=== PATIENT | male | born 1990 | race Caucasian/White ===

== ENCOUNTER 2018-04-26 00:40 | Inpatient (IN) | payer BC ==
[~2018-04-26] VITALS: Ht 170.2 cm; Wt 69.9 kg
[2018-04-26] MEDS ORDERED: ALBUTEROL SULFATE 2.5 MG/3 ML NEBU NEB ONE (01:00)
[2018-04-26] MEDS ORDERED: ALBUTEROL SULFATE 2.5 MG/3 ML NEBU ONE (01:04)
[2018-04-26] MEDS ORDERED: EPINEPHRINE 1 MG/1 ML AMP SQ ONE (01:30)
[2018-04-26] MEDS ORDERED: FAMOTIDINE. 20 MG/2 ML VIAL IV ONE ×2 (01:30→01:33)
[2018-04-26] MEDS ORDERED: diphenhydrAMINE 50 MG/1 ML VIAL IV ONE (01:30)
[2018-04-26] MEDS ORDERED: methylPREDNISolone SOD SUCC 125 MG/2 ML VIAL IV ONE (01:30)
--- NOTE | 2018-04-26 01:30 | NUR ---
Pt was brought in by mother for complaints of allergic reaction from almonds. Gen redness, itching noted. C/O "unable to take air", chest and throat tightness 2 hrs after eating almonds. Pt able to speak clearly. Alert, oriented x3. No sob noted. No s/sx of distress noted. Resp even and unlabored. Will cont to monitor.
[2018-04-26] MEDS ORDERED: EPINEPHRINE 1 MG/1 ML AMP ONE (01:32)
[2018-04-26] MEDS ORDERED: methylPREDNISolone SOD SUCC 125 MG/2 ML VIAL ONE (01:33)
--- NOTE | 2018-04-26 01:45 | NUR ---
After IV to L hand started, patient complaining of pain to L hand where IV was at. While nurse was trying to remove the IV, patient became pale, tensed up with back arched and gen shaking, which lasted about 5 minutes. Airway secured and safety precautions made during this episode. MD made aware and was at the bedside to assess patient. Reassured and comforted patient and mother. Will cont to monitor.
--- NOTE | 2018-04-26 02:12 | NUR ---
Benadryl unavailable at this time. House sup made aware. Waiting for HS to bring Benadryl
[2018-04-26] MEDS ORDERED: diphenhydrAMINE 50 MG/1 ML VIAL ONE (02:13)
--- NOTE | 2018-04-26 02:28 | NUR ---
Pt sleeping at this time. No sob noted. No ss/x of distress noted. Resp even and unlabored. Mother at bedside. Will cont to monitor.
[2018-04-26 02:41] LABS: BASOPHILS % (AUTO) 0.3 % (0.0-2.0); EOSINOPHILS # (AUTO) 0.1 K/uL (0.0-0.7); EOSINOPHILS % (AUTO) 1.2 % (0.0-7.0); HEMATOCRIT 43.3 % (36.7-47.1); HEMOGLOBIN 14.9 g/dL (12.5-16.3); LYMPHOCYTES # (AUTO) 3.1 K/uL (20.0-40.0); MEAN CORPUSCULAR HEMOGLOBIN 30.9 uug (23.8-33.4); MEAN CORPUSCULAR HGB CONC 35 g/dL (32.5-36.3); MEAN CORPUSCULAR VOLUME 89.6 fL (73.0-96.2); MONOCYTES # (AUTO) 0.6 K/uL (2.0-10.0); MONOCYTES % (AUTO) 7.1 % (0.0-11.0); NEUTROPHILS # (AUTO) 4.2 K/uL (1.8-8.9); NEUTROPHILS % (AUTO) 52.4 % (38.5-71.5); PLATELET COUNT (AUTO) 205 K/uL (152-348); RED BLOOD CELL COUNT(AUTO) 4.84 MIL/uL (4.06-5.63)
--- NOTE | 2018-04-26 02:42 | NUR ---
Amend: Episode last for about 5 seconds. S/P episode, patient was pale, diaphoretic and clammy.
[2018-04-26 02:49] LABS: CREATININE 0.8 mg/dL (0.6-1.3); POTASSIUM 3.5 mmol/L (3.5-5.1)
--- NOTE | 2018-04-26 02:51 | NUR ---
Attempted to call report. Receiving nurse will call back.
[2018-04-26 02:55] LABS: BILIRUBIN,DIRECT 0.1 mg/dL (0.0-0.2); BILIRUBIN,TOTAL 0.3 mg/dL (0.2-1.0)
--- NOTE | 2018-04-26 02:58 | NUR ---
Pt. admitted to tele , under care of Dr. Diana Belongs List completed
--- NOTE | 2018-04-26 03:21 | NUR ---
Pt called stated that his IV is hurting too much. Attempted to reposition arm, effective initially. Pt eventually wanted to have IV site changed. Discontinued [id number] with inner cannula intact. Light pressure with gauze and tape applied. Pt letty well. No complications. Restarted IV 20g to RFA; blood return noted and flushed well. Pt complained of severe pain to RFA IV site. Discontinued 20g RFA with inner cannula intact. Light pressure with gauze and tape applied. Pt letty well. No complications. Restarted IV with smaller gauge. Effective. Will cont to monitor.
--- NOTE | 2018-04-26 03:45 | NUR ---
PATIENT BROUGHT IN VIA GOURNEY ACCOMPANIED BY MOTHER, ADMITTED TO TELEMETRYWITH DX. ALLERGIC REACTION. NO S/S PRESENT NOW. NO C/O OF PAIN OR ANY DISCOMFORT. V/S WNL. SINUS RHYTHM ON THE SHAKER TENDER WILL CONTINUE TO MONITOR
--- NOTE | 2018-04-26 04:00 | NUR ---
SEIZURE PRECAUTIONS OBSERVED
[2018-04-26 04:52] VITALS: BP 121/59
[2018-04-26] MEDS ORDERED: diphenhydrAMINE 50 MG/1 ML VIAL IV PRN ×2 (05:00→07:30)
[2018-04-26] MEDS ORDERED: ACETAMINOPHEN 325 MG TABLET PO PRN (06:30)
[2018-04-26] MEDS ORDERED: IV 1/2NS 1000 ML 1,000 ML IV PRN (06:30)
[2018-04-26] MEDS ORDERED: ONDANSETRON 4 MG/2 ML VIAL IV PRN (06:30)
--- NOTE | 2018-04-26 06:55 | NUR ---
PATIENT ON BED, SLEEPING , EASILY AROUSING TO VERBAL COMMANDS. NO C/O OF PAIN OR ANY DISCOMFORT. IV FLUID STARTED ORDERED. NO EPISODES OF SEIZURE NOTED. SEIZURE PRECATIONS OBSERVED. MOTHER AT THE BED SIDE.
[2018-04-26] MEDS ORDERED: FAMOTIDINE. 20 MG/2 ML VIAL IV SCH (09:00)
[2018-04-26 11:24] VITALS: BP 116/52
--- NOTE | 2018-04-26 13:38 | NUR ---
D/C ORDERS RECEIVED NOTED AND CARRIED OUT,D/C INSTRUCTION AND EDUCATION GIVEN TO THE PT,D/C YOVANA PER MD ORDERS.PT LEFT THE FACILITY VIA PRIVATE CAR IN STABLE CONDITION
== END 2018-04-26 13:35 | disposition home or self-care (01) | DRG 923 ==
LOC: ER 00:42 → TELE 03:38
PROVIDERS: ADMIT Internal Medicine; ATTEND Registered Nurse
DX: T78.1XXA Other adverse food reactions, not elsewhere classified, initial encounter (principal); L50.0 Allergic urticaria; X58.XXXA Exposure to other specified factors, initial encounter; Z91.018 Allergy to other foods; F17.210 Nicotine dependence, cigarettes, uncomplicated; Z82.3 Family history of stroke; I45.10 Unspecified right bundle-branch block; R55 Syncope and collapse
CPT/HCPCS: 36415; 70030-TC; 85025; 85730; 93005; A4663; J0171; J1200; J2930; J3490